=== PATIENT | female | born 1980 | race African-American/Black ===

== ENCOUNTER 2018-12-14 19:45 | Emergency (ER) | payer OTHER ==
[~2018-12-14] VITALS: Ht 160 cm; Wt 47.0 kg
[2018-12-15] MEDS ORDERED: NITROGLYCERIN 0.4MG TABLET SL SL PRN (00:30)
[2018-12-15] MEDS ORDERED: ASPIRIN 81MG TABLET PO ONE (00:30)
[2018-12-15 00:53] LABS: BASOPHILS % 0.8 % (0.0-2.0); EOSINOPHILS % 2.3 % (0.0-5.0); HEMATOCRIT. 39.3 % (36.0-48.0); HEMOGLOBIN. 13.1 g/dL (12.0-16.0); LYMPHOCYTES % 39.6 % (20.0-50.0); MEAN CORPUSCULAR HEMOGLOBIN 25.7 pg (28.0-32.0); MEAN CORPUSCULAR VOLUME 77.5 fL (81.0-99.0); MEAN PLATELET VOLUME 8.8 fl (7.4-10.4); MONOCYTES % 9.2 % (2.0-8.0); NEUTROPHILS % 48.1 % (40.0-76.0); PLATELET 222 x1000/uL (130-400); RED BLOOD CELL COUNT 5.07 mill/uL (4.2-5.4); RED CELL DISTRIBUTION WIDTH 14.1 % (11.6-14.6)
[2018-12-15 00:59] LABS: CHLORIDE 103 mEq/L (98-107)
[2018-12-15 01:10] LABS: T4 FREE 1.21 ng/dL (0.76-1.46)
[2018-12-15 05:30] VITALS: BP 115/68
== END 2018-12-15 05:31 | disposition home or self-care (01) ==
LOC: ER 19:45
DX: R07.89 Other chest pain (principal); R42 Dizziness and giddiness; M41.9 Scoliosis, unspecified
CPT/HCPCS: 36415; 71045; 80053; 81025; 84439; 84443; 84484; 85025; 85379; 93005; 99284; Z7610